=== PATIENT | female | born 2000 | race Caucasian/White ===

== ENCOUNTER 2018-05-01 16:02 | Emergency (ER) | payer OTHER ==
--- NOTE | 2018-05-01 17:11 | RAD ---
INDICATION: Right knee injury. TECHNIQUE: 4 views of the right knee were obtained. FINDINGS: The bones are in normal alignment. No joint effusion or fracture is seen. Joint spaces appear maintained. IMPRESSION: NO EVIDENCE FOR FRACTURE.
[2018-05-01] MEDS ORDERED: Ibuprofen TAB* 600 MG PO ONE (17:12)
--- NOTE | 2018-05-01 17:16 | ED ---
Lower Extremity - HPI Summary HPI Summary: Patient is a 17 y/o F w/ c/o right knee pain. She was playing rugby today when she was tackled. Patient states she subsequently twisted her knee and heard a popping sound. She notes pain and moderate swelling at this knee. On triage, pain is rated 6/10, nothing is reported to aggravate/alleviate Sx. Home medications and allergies are reviewed. - History of Current Complaint Chief Complaint: EDExtremityLower Stated Complaint: RT KNEE INJURY Time Seen by Provider: 05/01/18 16:58 Hx Obtained From: Patient Mechanism Of Injury: Other - patient was tackled playing rugby Onset of Pain: Immediate, Prior to Arrival Onset/Duration: Still Present Severity Currently: Moderate - 6/10 Pain Intensity: 6 Pain Scale Used: 0-10 Numeric - 6/10 Timing: Constant Location: Is Discrete @ - right knee Associated Signs And Symptoms: Positive: Swelling, Knee Pain - right Aggravating Factor(s): Nothing Alleviating Factor(s): Nothing - Allergies/Home Medications Allergies/Adverse Reactions: Allergies Allergy/AdvReac Type Severity Reaction Status Date / Time No Known Allergies Allergy Verified 05/01/18 16:11 PMH/Surg Hx/FS Hx/Imm Hx Sensory History: Denies: Hx Legally Blind, Hx Deafness Opthamlomology History: Denies: Hx Legally Blind EENT History: Denies: Hx Deafness Infectious Disease History: No Infectious Disease History: Denies: Traveled Outside the [place] in Last 30 Days - Family History Known Family History: Negative: Blood Disorder - Social History Alcohol Use: Occasionally Substance Use Type: Reports: None Smoking Status (MU): Never Smoked Tobacco Review of Systems Negative: Fever - on vitals, temp is 98.7 F Positive: Other - right knee pain and swelling All Other Systems Reviewed And Are Negative: Yes Physical Exam - Summary Physical Exam Summary: Appearance: Well appearing, no pain distress Skin: warm, dry, reflects adequate perfusion Head/face: normal Eyes: EOMI, JAQUI ENT: normal Neck: supple, non-tender Respiratory: CTA, breath sounds present Cardiovascular: RRR, pulses symmetrical Abdomen: non-tender, soft Bowel: present Musculoskeletal: strength/ROM intact; tenderness, abrasion and swelling of right knee Neuro: normal, sensory motor intact, A&Ox3 Triage Information Reviewed: Yes Vital Signs On Initial Exam: Initial Vitals Temp Pulse Resp BP Pulse Ox 98.7 F 74 16 133/78 100 05/01/18 16:07 05/01/18 16:07 05/01/18 16:07 05/01/18 16:07 05/01/18 16:07 Vital Signs Reviewed: Yes Diagnostics - Vital Signs Vital Signs Temp Pulse Resp BP Pulse Ox 05/01/18 16:07 98.7 F 74 16 133/78 100 - Laboratory Lab Statement: Any lab studies that have been ordered have been reviewed, and results considered in the medical decision making process. - Radiology RIGHT KNEE X-RAY Radiology Interpretation Completed By: Radiologist Summary of Radiographic Findings: NO EVIDENCE FOR FRACTURE, THIS REPORT WAS REVIEWED BY ED PHYSICIAN. Lower Extremity Course/Dx - Course Course Of Treatment: Patient is a 17 y/o F w/ c/o right knee pain. She was playing rugby today when she was tackled. Patient states she subsequently twisted her knee and heard a popping sound. She notes pain and moderate swelling at this knee. Physical exam showed tenderness, abrasion and swelling of right knee. During ED course, patient received Motrin 600 mg. RIGHT KNEE X- RAY SHOWED NO EVIDENCE FOR FRACTURE. Results of x-ray was discussed with patient , she will be discharged to home with crutches and knee immobilizer and follow up with orthopedic doctor. Patient is agreeable with this plan. Dx of right knee sprain, contusion. - Diagnoses Provider Diagnoses: Right knee sprain, Contusion of right knee Discharge - Sign-Out/Discharge Documenting (check all that apply): Patient Departure - DISCHARGE - Discharge Plan Condition: Stable Disposition: HOME Prescriptions: Ibuprofen TAB* [Motrin TAB* 600 MG] 600 mg PO Q8H PRN #20 tab MDD 3 PRN Reason: Pain Patient Education Materials: Knee Sprain (ED) Referrals: Klever Tejeda MD [Medical Doctor] - 3 Days Additional Instructions: FOLLOW UP WITH YOUR ORTHOPEDIC DOCTOR IN THREE DAYS. RETURN TO ED FOR ANY NEW OR WORSENING SYMPTOMS. - Attestation Statements Document Initiated by Scribe: Yes Documenting Scribe: Taras Blackburn Provider For Whom Scribe is Documenting (Include Credential): Charly Stout MD Scribe Attestation: Taras Isidro , scribed for Charly Stout MD on 05/01/18 at 172.
[2018-05-01 17:41] VITALS: BP 118/60
== END 2018-05-01 17:40 | disposition home or self-care (01) ==
LOC: ED 16:02
DX: S83.91XA Sprain of unspecified site of right knee, initial encounter (principal); S80.01XA Contusion of right knee, initial encounter; W03.XXXA Other fall on same level due to collision with another person, initial encounter; Y93.63 Activity, rugby; Y92.39 Other specified sports and athletic area as the place of occurrence of the external cause
CPT/HCPCS: 99282; A9270-GY